=== PATIENT | female | born 1945 | race Caucasian/White ===

== ENCOUNTER 2022-06-17 08:59 | Outpatient (CLI) | payer MEDICARE, BC, SELFPAY | END 2022-06-17 09:00 | disposition home or self-care (01) | PROVIDERS: PCP Family Medicine; Visit Provider Family Medicine | DX: M54.16 Radiculopathy, lumbar region (principal) | CPT/HCPCS: 64483; J1100; Q9966 ==

== ENCOUNTER 2024-11-01 08:22 | Outpatient (CLI) | payer MEDICARE, BC, SELFPAY ==
--- NOTE | 2024-11-01 10:21 | P.ANES_ITS ---
Anesthesia Charges Start Date/Time Anesthesia Start Date: 11/01/24 Anesthesia Start Time: 09:57 Stop Date/Time Anesthesia Stop Date: 11/01/24 Anesthesia Stop Time: 10:20 Summary Extremes of Age - Over 70 or under 1: GROOVING LATHE TENDER Coding CPT Codes CPT Codes: ANES UPR GI NDSC PX NOS - 08375 ([id number]) P3 - PATIENT W/SEVERE SYS DISEASE, QZ - GROOVING LATHE TENDER SVC W/O DIGITAL MARKETING COORDINATOR BY Additional Codes: Summary - Extremes of Age - Over 70 or under 1: GROOVING LATHE TENDER ([id number])
--- NOTE | 2024-11-01 10:21 | W.ANESCHARGE ---
Anesthesia Charges Start Date/Time Anesthesia Start Date: 11/01/24 Anesthesia Start Time: 09:57 Stop Date/Time Anesthesia Stop Date: 11/01/24 Anesthesia Stop Time: 10:20 Summary Extremes of Age - Over 70 or under 1: LEVEL VIAL SEALER Coding CPT Codes CPT Codes: ANES UPR GI NDSC PX NOS - 99039 ([id number]) P3 - PATIENT W/SEVERE SYS DISEASE, QZ - LEVEL VIAL SEALER SVC W/O WAGON DRIVER SALESPERSON BY Additional Codes: Summary - Extremes of Age - Over 70 or under 1: LEVEL VIAL SEALER ([id number])
== END 2024-11-01 08:23 | disposition home or self-care (01) ==
LOC: OP CLINIC 08:26
PROVIDERS: PCP Family Medicine; Visit Provider Internal Medicine Gastroenterology
DX: R10.13 Epigastric pain (principal); K21.9 Gastro-esophageal reflux disease without esophagitis; R13.10 Dysphagia, unspecified
CPT/HCPCS: 00731; 43239; 88305; 99100; J2704

== ENCOUNTER 2024-12-28 19:18 | Outpatient (CLI) | payer MEDICARE, BC, SELFPAY | END 2024-12-28 19:19 | disposition home or self-care (01) | LOC: AMB 01-01 07:16 | PROVIDERS: PCP Family Medicine; Visit Provider Family Medicine | DX: S29.9XXA Unspecified injury of thorax, initial encounter (principal); V49.50XA Passenger injured in collision with unspecified motor vehicles in traffic accident, initial encounter; Y92.410 Unspecified street and highway as the place of occurrence of the external cause | CPT/HCPCS: A0425; A0427 ==